=== PATIENT | male | born 1975 | race Caucasian/White ===

== ENCOUNTER 2017-06-20 18:35 | Emergency (ER) | payer BC, OTHER ==
[~2017-06-20] VITALS: Ht 180.3 cm; Wt 108.9 kg
[~2017-06-20 18:35] MED LIST: CIPRO 500 MG PO; HYDR-3454 PO; LORTAB 5MG PO
--- OUTSIDE RECORDS SUMMARY | 2017-06-20 18:41 | XMS REPORT | Continuity of Care Document ---
Author Author [facility] Organization [facility] Address Unknown Phone Unavailable Allergies Active Description Code Type Severity Reaction Onset Reported/Identified Relationship to Patient Clinical Status Yes No Known Drug Allergies [id number] Drug Allergy Unknown N/A 06/26/2010 Medications There is no data. Problems Date Dx Coded Attending Type Code Diagnosis Diagnosed By 06/27/2010 Ot 214.4 06/27/2010 Ot 550.90 06/27/2010 Ot 603.9 05/18/2015 Ot 603.9 05/18/2015 Ot 603.9 05/18/2015 Ot 603.9 05/18/2015 Ot V72.63 05/18/2015 Ot V74.8 05/19/2015 EMMANUEL ZARAGOZA, [place] Ot J11.1 FLU DUE TO UNIDENTIFIED INFLUENZA VIRUS 05/19/2015 EMMANUEL ZARAGOZA, [place] Ot K35.80 UNSPECIFIED ACUTE APPENDICITIS 05/19/2015 EMMANUEL ZARAGOZA, [place] Ot N43.3 HYDROCELE, UNSPECIFIED 05/19/2015 EMMANUEL ZARAGOZA, [place] Ot J11.1 05/19/2015 EMMANUEL ZARAGOZA, [place] Ot K35.80 05/19/2015 EMMANUEL ZARAGOZA, [place] Ot N43.3 05/20/2015 EMMANUEL [place]ARAGO[place], [place] Ot J11.1 05/20/2015 EMMANUEL [place]ARAGOZA, [place] Ot K35.80 05/20/2015 EMMANUEL ZARAGOZA, [place] Ot N43.3 Procedures There is no data. Results There is no data. Encounters ACCT No. Visit Date/Time Discharge Status Pt. Type Provider Facility Loc./Unit Complaint [id number] 05/18/2015 12:46:00 05/19/2015 13:00:00 DIS Outpatient EMMANUEL ZARAG[place], [place] [facility] APPENDICITIS [id number] 06/27/2010 05:39:00 Document Registration [id number] 06/26/2010 15:14:00 Document Registration [id number] 06/05/2010 11:30:00 Document Registration [id number] 06/01/2010 10:57:00 Document Registration [id number] 06/03/2017 08:50:00 06/03/2017 23:59:59 [facility] Outpatient [facility]
[2017-06-20 19:03] LABS: BASOPHILS % (AUTO) 0 % (0-10); EOSINOPHILS # (AUTO) 0.1 10^3/uL (0.0-0.3); EOSINOPHILS % (AUTO) 1 % (0-10); HEMATOCRIT 42 % (40-54); HEMOGLOBIN 15.7 G/DL (13.3-17.7); LYMPHOCYTES # (AUTO) 1.8 X 10^3 (1.0-4.0); LYMPHOCYTES % (AUTO) 22 % (12-44); MEAN CORPUSCULAR HEMOGLOBIN 31 PG (25-34); MEAN CORPUSCULAR HGB CONC 37 G/DL (32-36); MEAN CORPUSCULAR VOLUME 83 FL (80-99); MEAN PLATELET VOLUME 10.4 FL (7.4-10.4); MONOCYTES % (AUTO) 12 % (0-12); NEUTROPHILS # (AUTO) 5.4 X 10^3 (1.8-7.8); NEUTROPHILS % (AUTO) 65 % (42-75); PLATELET COUNT 195 10^3/uL (130-400); RED BLOOD COUNT 5.09 10^6/uL (4.35-5.85); RED CELL DISTRIBUTION WIDTH 12.7 % (10.0-14.5); WHITE BLOOD COUNT 8.3 10^3/uL (4.3-11.0)
--- NOTE | 2017-06-20 19:09 | Diagnostic Imaging Report ---
INDICATION: Slurred speech. TECHNIQUE: Portable chest at 7:01 p.m. FINDINGS: Heart and mediastinum are normal. Lungs are clear. There are no effusions or pneumothoraces. IMPRESSION: Negative chest. Dictated by: Dictated on workstation # [id number]
--- NOTE | 2017-06-20 19:12 | Diagnostic Imaging Report ---
Indication: Altered mental status, slurred speech CT head without contrast The ventricles are normal in size, shape and position. There are no masses or hemorrhages. There are no extra-axial fluid collections. Impression: Negative CT head. There is no CT evidence for an acute infarct. Dictated by: Dictated on workstation # [id number]
[2017-06-20 19:20] LABS: BILIRUBIN,URINE NEGATIVE (NEGATIVE); CLARITY,URINE CLEAR; COLOR,URINE YELLOW; GLUCOSE, URINE (UA) NEGATIVE (NEGATIVE); KETONES,URINE NEGATIVE (NEGATIVE); LEUKOCYTE ESTERASE ,URINE 1+ (NEGATIVE); NITRITE,URINE NEGATIVE (NEGATIVE); PH,URINE 6 (5-9); PROTEIN,URINE NEGATIVE (NEGATIVE); UROBILINOGEN,URINE NORMAL (NORMAL)
[2017-06-20 19:23] LABS: ALANINE AMINOTRANSFERASE 37 U/L (0-55); ALBUMIN 4.8 GM/DL (3.2-4.5); ALKALINE PHOSPHATASE 73 U/L (40-136); BILIRUBIN,TOTAL 0.6 MG/DL (0.1-1.0); BUN/CREATININE RATIO 11; CALCIUM 9.6 MG/DL (8.5-10.1); CARBON DIOXIDE 28 MMOL/L (21-32); CHLORIDE 101 MMOL/L (98-107); CREATININE SERUM 1.16 MG/DL (0.60-1.30); GFR ESTIMATED > 60; GLUCOSE 113 MG/DL (70-105); MAGNESIUM 2.3 MG/DL (1.8-2.4); POTASSIUM 3.9 MMOL/L (3.6-5.0); SODIUM 138 MMOL/L (135-145); TOTAL PROTEIN 8.2 GM/DL (6.4-8.2)
[2017-06-20 19:42] LABS: AMPHETAMINE SCREEN, URINE NEGATIVE (NEGATIVE); BARBITURATE SCREEN URINE NEGATIVE (NEGATIVE); BENZODIAZEPINES SCREEN URINE NEGATIVE (NEGATIVE); CANNABINOID SCREEN, URINE NEGATIVE (NEGATIVE); COCAINE SCREEN URINE NEGATIVE (NEGATIVE); METHADONE STAT NEGATIVE (NEGATIVE); METHAMPHETAMINE SCREEN URINE S NEGATIVE (NEGATIVE); OPIATE SCREEN URINE NEGATIVE (NEGATIVE); OXYCODONE STAT NEGATIVE (NEGATIVE); PROPOXYPHENE STAT NEGATIVE (NEGATIVE); TRICYCLIC ANTIDEPRESSANTS SCRE NEGATIVE (NEGATIVE)
[2017-06-20 19:45] LABS: WBC,URINE 0-2 /HPF
--- NOTE | 2017-06-20 20:05 | ED General ---
General Chief Complaint: Dizziness/Syncope Stated Complaint: DIZZY, SLURRED SPEECH, BP BOTTOM # IS 105, HOT Nursing Triage Note: PT STATES FOR THE PAST COUPLE MONTHS HE HAS HAD VISION PROBLEMS OFF AND ON, TONIGHT HE STATES HE STARTED FEELING HOT AND HAD SLURRED SPEACH ABOUT ONE HR DOMESTIC HELPER. STATES SLURRED SPEACH LASTED FOR ABOUT 2 MINUTES. Nursing Sepsis Screen: No Definite Risk Source of Information: Patient, Spouse Exam Limitations: Other (VAGUE HISTORIAN) History of Present Illness Date Seen by Provider: Jun 20, 2017 Time Seen by Provider: 18:40 Initial Comments PT ARRIVES VIA POV FROM HOME PT STATES FOR THE LAST COUPLE OF MONTHS, HE HAS HAD INTERMITTENT VISION CHANGES- -SEEING WAVY LINES--LASTS A COUPLE OF MINUTES AND GOES AWAY--OCCURS ONCE EVERY COUPLE OF WEEKS. NOT OCCURRING NOW HAS HAD DIZZY SPELLS OFF AND ON FOR THE LAST MONTH--STATES THEY COME ON AND IMMEDIATELY GO AWAY SOON THEY COME ON. NOT OCCURRING NOW TONIGHT, STATES HE GOT REAL HOT AND SWEATY AND FOR ABOUT 2 MINUTES, HE HAD SOME SLURRED SPEECH--OCCURRED AROUND 1800 RIGHT AFTER THAT HE CHECKED HIS BP AND STATES THE BOTTOM NUMBER WAS 105. TOP NUMBER WAS 136. PULSE WAS 90 STATES HE TOOK "SOMETHING" --"350 MG" --MAYBE ASPIRIN OR IBUPROFEN, OR MAYBE SOMETHING ELSE--DOESN'T KNOW WHAT HE TOOK NO CHEST PAIN NO SHORTNESS OF BREATH NO PALPITATIONS NO NAUSEA NO SWELLING IN LEGS/ FEET OR PAIN IN CALVES NO HEADACHE VISION CHANGES AND DIZZINESS DID NOT OCCUR TODAY OR DURING EPISODE OF SLURRED SPEECH PT SMOKES AND CHEWS TOBACCO, OCCASIONALLY DRINKS ALCOHOL, AND YEARS AGO HE USED COCAINE. PT STATES HE WAS DX WITH HTN > 10 YEARS AGO AND HAD BEEN PRESCRIBED MEDICATION, BUT SIMPLY QUIT TAKING THEM AFTER A SHORT PERIOD OF TIME AND NEVER WENT BACK TO DR. DOES NOT GIVE A REASON TO WHY HE QUIT TAKING MEDICATION STATES HE HAS BEEN A PT OF DR. LUZ, BUT HAS NOT SEEN IN YEARS. Allergies and Home Medications Allergies Coded Allergies: No Known Drug Allergies (Unverified , 06/26/10) Home Medications Lisinopril/Hydrochlorothiazide 1 Each Tablet, 1 EACH PO DAILY Prescribed by: JAY VILLARREAL on 06/20/172011 Patient Home Medication List Home Medication List Reviewed: Yes Review of Systems Constitutional: see HPI EENTM: see HPI Respiratory: no symptoms reported Cardiovascular: no symptoms reported; No chest pain, No edema, No palpitations , No syncope, No vascular heart diseas Gastrointestinal: no symptoms reported Genitourinary: no symptoms reported Musculoskeletal: no symptoms reported Skin: no symptoms reported Psychiatric/Neurological: See HPI Hematologic/Lymphatic: No Symptoms Reported Immunological/Allergic: no symptoms reported Past Bdocopp-Kcayxn-Fwlkvo Hx Patient Social History Alcohol Use: Occasionally Uses Alcohol Beverage of Choice: Beer Recreational Drug Use: Yes (HX OF COCAINE YEARS AGO--DENIES IV USE) Smoking Status: Current Everyday Smoker (< 1 PPD, PLUS CHEWS TOBACCO) Type Used: Cigarettes, Smokeless Tobacco Recent Foreign Travel: No Contact w/Someone Who Travel: No Recent Infectious Disease Expo: No Recent Hopitalizations: No Immunizations Up To Date Date of Influenza Vaccine: Dec 05, 2016 Seasonal Allergies Seasonal Allergies: Yes Past Medical History Surgeries: Yes (HYDROCOELE; LEFT HERNIA) Abdominal, Appendectomy Respiratory: No Cardiac: Yes (DOES NOT TAKE MEDS--QUIT TAKING YEARS AGO, PER PT ON 06/20/17) Hypertension Neurological: No Reproductive Disorders: No Sexually Transmitted Disease: No Genitourinary: No Gastrointestinal: Yes Abdominal Hernia Musculoskeletal: No Endocrine: No Cancer: No Psychosocial: No Integumentary: No Blood Disorders: No Family Medical History Patient reports no known family medical history. Physical Exam Vital Signs Vital Signs - First Documented 06/20/17 18:43 Temp 97.8 Pulse 100 Resp 20 B/P (MAP) 181/115 (137) Pulse Ox 98 O2 Delivery Room Air Capillary Refill : Less Than 3 Seconds General Appearance: No Apparent Distress, WD/WN HEENT: PERRL/EOMI Neck: Full Range of Motion, Normal Inspection, Non Tender, Supple; No Carotid Bruit, No JVD Respiratory: Normal Breath Sounds, No Accessory Muscle Use, No Respiratory Distress Cardiovascular: Regular Rate, Rhythm, No Edema, No Gallop, No JVD, No Murmur, Normal Peripheral Pulses Gastrointestinal: Normal Bowel Sounds, No Organomegaly, No Pulsatile Mass, Non Tender, Soft Back: Normal Inspection, No CVA Tenderness Extremity: Normal Capillary Refill, Normal Inspection, Normal Range of Motion, Non Tender, No Calf Tenderness, No Pedal Edema Neurologic/Psychiatric: Alert, Oriented x3, No Motor/Sensory Deficits, Normal Mood/Affect, japanese interpreter II-XII Norm as Tested; No Abnormal Cerebellar Tests Skin: Normal Color, Warm/Dry Progress/Results/Core Measures Suspected Sepsis Recent Fever Within 48 Hours: No Infection Criteria Present: None New/Unexplained Altered Menta: No Sepsis Screen: No Definite Risk SIRS Temperature:97.8 Pulse: 100 Respiratory Rate: 20 Laboratory Tests 06/20/17 18:55: White Blood Count 8.3 Blood Pressure 181 /115 Mean: 137 Laboratory Tests 06/20/17 18:55: Creatinine 1.16, INR Comment 1.0, Platelet Count 195, Total Bilirubin 0.6 Results/Orders Lab Results Laboratory Tests Test 06/20/17 18:55 06/20/17 19:11 Range/Units White Blood Count 8.3 4.3-11.0 10^3/uL Red Blood Count 5.09 4.35-5.85 10^6/uL Hemoglobin 15.7 13.3-17.7 G/DL Hematocrit 42 40-54 % Mean Corpuscular Volume 83 80-99 FL Mean Corpuscular Hemoglobin 31 25-34 PG Mean Corpuscular Hemoglobin Concent 37 H 32-36 G/DL Red Cell Distribution Width 12.7 10.0-14.5 % Platelet Count 195 130-400 10^3/uL Mean Platelet Volume 10.4 7.4-10.4 FL Neutrophils (%) (Auto) 65 42-75 % Lymphocytes (%) (Auto) 22 12-44 % Monocytes (%) (Auto) 12 0-12 % Eosinophils (%) (Auto) 1 0-10 % Basophils (%) (Auto) 0 0-10 % Neutrophils # (Auto) 5.4 1.8-7.8 X 10^3 Lymphocytes # (Auto) 1.8 1.0-4.0 X 10^3 Monocytes # (Auto) 1.0 0.0-1.0 X 10^3 Eosinophils # (Auto) 0.1 0.0-0.3 10^3/uL Basophils # (Auto) 0.0 0.0-0.1 10^3/uL Prothrombin Time 13.0 12.2-14.7 SEC INR Comment 1.0 0.8-1.4 Activated Partial Thromboplast Time 28 24-35 SEC Sodium Level 138 135-145 MMOL/L Potassium Level 3.9 3.6-5.0 MMOL/L Chloride Level 101 98-107 MMOL/L Carbon Dioxide Level 28 21-32 MMOL/L Anion Gap 9 5-14 MMOL/L Blood Urea Nitrogen 13 7-18 MG/DL Creatinine 1.16 0.60-1.30 MG/DL Estimat Glomerular Filtration Rate > 60 BUN/Creatinine Ratio 11 Glucose Level 113 H 70-105 MG/DL Calcium Level 9.6 8.5-10.1 MG/DL Magnesium Level 2.3 1.8-2.4 MG/DL Total Bilirubin 0.6 0.1-1.0 MG/DL Aspartate Amino Transf (AST/SGOT) 21 5-34 U/L Alanine Aminotransferase (ALT/SGPT) 37 0-55 U/L Alkaline Phosphatase 73 40-136 U/L Troponin I < 0.30 <0.30 NG/ML B-Type Natriuretic Peptide < 10.0 <100.0 PG/ML Total Protein 8.2 6.4-8.2 GM/DL Albumin 4.8 H 3.2-4.5 GM/DL TSH [place] Testing 1.00 0.35-4.94 UIU/ML Serum Alcohol < 10 <10 MG/DL Urine Color YELLOW Urine Clarity CLEAR Urine pH 6 5-9 Urine Specific [place] 1.015 L 1.016-1.022 Urine Protein NEGATIVE NEGATIVE Urine Glucose (UA) NEGATIVE NEGATIVE Urine Ketones NEGATIVE NEGATIVE Urine Nitrite NEGATIVE NEGATIVE Urine Bilirubin NEGATIVE NEGATIVE Urine Urobilinogen NORMAL NORMAL MG/DL Urine Leukocyte Esterase 1+ H NEGATIVE Urine RBC (Auto) NEGATIVE NEGATIVE Urine RBC NONE /HPF Urine WBC 0-2 /HPF Urine Crystals NONE /LPF Urine Bacteria NONE /HPF Urine Casts NONE /LPF Urine Mucus NEGATIVE /LPF Urine Culture Indicated NO Urine Opiates Screen NEGATIVE NEGATIVE Urine Oxycodone Screen NEGATIVE NEGATIVE Urine Methadone Screen NEGATIVE NEGATIVE Urine Propoxyphene Screen NEGATIVE NEGATIVE Urine Barbiturates Screen NEGATIVE NEGATIVE Ur Tricyclic Antidepressants Screen NEGATIVE NEGATIVE Urine Phencyclidine Screen NEGATIVE NEGATIVE Urine Amphetamines Screen NEGATIVE NEGATIVE Urine Methamphetamines Screen NEGATIVE NEGATIVE Urine Benzodiazepines Screen NEGATIVE NEGATIVE Urine Cocaine Screen NEGATIVE NEGATIVE Urine Cannabinoids Screen NEGATIVE NEGATIVE My Orders Orders - JAY VILLARREAL DO Saline Lock/Iv-Start (06/20/17 18:40) Ekg Tracing (06/20/17 18:40) Monitor-Rhythm Ecg Trace Only (06/20/17 18:40) Ct Head Wo-R/O Stroke (06/20/17 18:40) BNP (06/20/17 18:40) Cbc With Automated Diff (06/20/17 18:40) Comprehensive Metabolic Panel (06/20/17 18:40) Drug Screen Stat (Urine) (06/20/17 18:40) Magnesium (06/20/17 18:40) Protime With Inr (06/20/17 18:40) Partial Thromboplastin Time (06/20/17 18:40) Thyroid Analyzer (06/20/17 18:40) Troponin I (06/20/17 18:40) Ua Culture If Indicated (06/20/17 18:40) Chest 1 View, Ap/Pa Only (06/20/17 18:40) Alcohol (06/20/17 18:51) Metoprolol Tartrate Injection (Lopressor (06/20/17 20:15) Metoprolol Succinate (Xl) Tab (Toprol Xl (06/20/17 20:15) Medications Given in ED Current Medications Medications Dose Ordered Sig/Robbie Route Start Time Stop Time Status Last Admin Dose Admin Metoprolol Succinate 25 mg ONCE ONCE PO 06/20/17 20:15 06/20/17 20:16 DC 06/20/17 20:39 25 MG Metoprolol Tartrate 5 mg ONCE ONCE IV 06/20/17 20:15 06/20/17 20:16 DC 06/20/17 20:39 5 MG Vital Signs/I&O 06/20/17 06/20/17 18:43 20:51 Temp 97.8 97.8 Pulse 100 81 Resp 20 20 B/P (MAP) 181/115 (137) 142/99 (137) Pulse Ox 98 96 O2 Delivery Room Air Room Air Capillary Refill : Less Than 3 Seconds Blood Pressure Mean: 137 Progress Note : Progress Note NO SYMPTOMS DURING ER STAY BP DOWN AT TIME OF DISMISSAL ECG Initial ECG Impression Date: Jun 20, 2017 Initial ECG Impression Time: 18:39 Initial ECG Rate: 97 Initial ECG Rhythm: Normal Sinus Initial ECG Comparisson: No Previous ECG Available Diagnostic Imaging Comments CXR--NO ACUTE PROCESS CT HEAD--NO ACUTE PROCESS PER RADIOLOGIST REPORTS @ 1917 Reviewed: Reviewed by Me Departure Communication (Admissions) 2001--SPOKE WITH DR. HENRY, ADVISES TO GIVE RX FOR LISINOPRIL/HCTZ 12/13. AND HE WILL SEE PT IN OFFICE IN THE MORNING Impression Primary Impression: HTN (hypertension) Disposition: 01 HOME, SELF-CARE Condition: Improved Departure-Patient Inst. Referrals: LARRY HENRY DO (PCP/Family) Primary Care Physician Patient Instructions: Controlling Your Blood Pressure Through Lifestyle, High Blood Pressure (DC) Add. Discharge Instructions: FOLLOW UP WITH DR. HENRY TOMORROW MORNING RETURN TO ER IF SYMPTOMS WORSEN All discharge instructions reviewed with patient and/or family. Voiced understanding. Scripts Lisinopril/Hydrochlorothiazide (Lisinopril-Hctz 10-12.5 mg Tab) 1 Each Tablet 1 EACH PO DAILY, #30 TAB Prov: JAY VILLARREAL DO 06/20/17 JAY VILLARREAL DO Jun 20, 2017 20:05
[2017-06-20] MEDS ORDERED: LISI1TAB6 PO (20:12)
[2017-06-20] MEDS ORDERED: meTOprolol 5 MG/5 ML (LOPRESSOR) VIAL IV ONE (20:15)
[2017-06-20 20:51] VITALS: BP 142/99
== END 2017-06-20 20:51 | disposition home or self-care (01) ==
LOC: EDUNIT# 18:35 → ER 18:37
DX: I10 Essential (primary) hypertension (principal); F17.210 Nicotine dependence, cigarettes, uncomplicated; Z90.49 Acquired absence of other specified parts of digestive tract; Z87.19 Personal history of other diseases of the digestive system
CPT/HCPCS: 36415; 70450; 71045; 80053; 80306; 80320; 81000; 83735; 83880; 84443; 84484; 85025; 85610; 85730; 93005; 93041; 96374

== ENCOUNTER → 2017-07-18 | Outpatient (CLI) | payer BC ==
[~2017-07-18] MED LIST changes: +LISI1TAB6 PO
--- NOTE | 2017-07-18 16:22 | Diagnostic Imaging Report ---
INDICATION: Left testicular enlargement. TECHNIQUE: Multiple real-time grayscale images were obtained over the scrotum in various projections bilaterally. Color Doppler images were also obtained. FINDINGS: The testicles appear to be fairly symmetric in size with the right testicle measuring 5.0 x 3.1 x 2.4 cm and the left testicle measuring 5.5 x 2.5 x 2.7 cm. Both testes demonstrate a homogeneous echotexture. No discrete testicular mass is detected. There is blood flow bilaterally. There is a moderate right hydrocele; however, there is a very large left hydrocele. The left hydrocele measures at least 15 x 9 x 10 cm. IMPRESSION: 1. No evidence of testicular mass or vascular compromise. 2. Bilateral hydroceles, very large on the left. Dictated by: Dictated on workstation # [id number]
== END ==
LOC: RAD 13:02
PROVIDERS: ATTEND Family Medicine
DX: N43.3 Hydrocele, unspecified (principal)
CPT/HCPCS: 76870

== ENCOUNTER → 2017-09-19 | Outpatient (CLI) | payer BC ==
[2017-09-19 07:17] LABS: ALBUMIN 4.4 GM/DL (3.2-4.5); BILIRUBIN,DIRECT 0.2 MG/DL (0.0-0.3); BILIRUBIN,INDIRECT 0.4 MG/DL; BILIRUBIN,TOTAL 0.6 MG/DL (0.1-1.0); TOTAL PROTEIN 7.4 GM/DL (6.4-8.2)
== END ==
LOC: LAB 06:43
PROVIDERS: ATTEND Family Medicine
DX: E78.5 Hyperlipidemia, unspecified (principal)
CPT/HCPCS: 36415; 80061; 80076